=== PATIENT | female | born 1950 | race Caucasian/White ===

== ENCOUNTER 2021-03-25 14:53 | Emergency (ER) | payer MEDICARE, SELFPAY ==
--- NOTE | ~2021-03-25 | XR_ITS ---
XR knee RT 3V 03/25/2021 15:36 Indication: Generalized abdominal pain Procedure: 3 views right knee Comparison: . No prior studies for comparison. Findings: Mild osteoarthritis of the right knee. No fracture or traumatic malalignment. No significan t joint effusion. No focal soft tissue abnormality. No foreign bodies. Impression: 1: Mild osteoarthritis of the right knee. Reviewed, dictated and finalized at location B. Impression: 1: Mild osteoarthritis of the right knee.
[2021-03-25 15:18] VITALS: BP 192/90; PULSE 79; RESP 16; TEMP 36.6; O2SAT 100
--- NOTE | 2021-03-25 16:29 | ED.GENADULT ---
HPI - General Adult General Chief complaint: Extremity Injury, Lower <Juan Hooks PA-C - Last Filed: 03/25/21 16:31> Stated complaint: knee injury <ALICIA Gregory Last Filed: 03/25/21 16:31> Time Seen by Provider: 03/25/21 15:47 <Juan Hooks PA-C - Last Filed: 03/25/21 16:31> Source: patient and family <ALICIA Gregory Last Filed: 03/25/21 16:31> Mode of arrival: ambulatory <Juan Hooks PA-C - Last Filed: 03/25/21 16:31> Limitations: no limitations <ALICIA Gregory Last Filed: 03/25/21 16:31> History of Present Illness HPI narrative: Patient is a 70-year-old female who presents to emergency department for evaluation of right knee pain along the bilateral aspects patient notes aching pain worse with weightbearing and activity pain has been off and on she has been taking advised Aleve and Tylenol with relief and has had worsening pain based on activity patient denies pain elsewhere presents in no distress has not seen any specialist for this <Juan Hooks PA-C - Last Filed: 03/25/21 16:31> Related Data Allergies/adverse reactions: Allergies Allergy/AdvReac Type Severity Reaction Status Date / Time No Known Allergies Allergy Verified 03/25/21 15:45 <Juan Hooks PA-C - Last Filed: 03/25/21 16:31> Review of Systems Review of Systems: All systems reviewed & are unremarkable except as noted in HPI and below <Juan Hooks PA-C - Last Filed: 03/25/21 16:31> [facility] Social History Social History: Social History (Updated 03/25/21 @ 16:30 by Juan Hooks PA-C) Smoking status: Never smoker Gender identity (if verbalized by the patient): Female <ALICIA Gregory Last Filed: 03/25/21 16:31> Exam Narrative: Exam Narrative: GENERAL: Well-appearing, well-nourished, and in no acute distress. HEAD: Normocephalic, atraumatic. EYES: PERRLA and EOMI. ENT: Nares clear, no rhinorrhea or epistaxis. Mucous membranes moist. CHEST: Clear to auscultation. No respiratory distress. No wheezes rales or rhonchi HEART: Regular rate and rhythm. No murmur heard. Normal peripheral pulses. ABDOMEN: Soft, nontender, nondistended EXTREMITIES: Tenderness of the right knee joint no deformity noted SKIN: Warm, dry, no rash. NEURO: No focal deficits. Alert and oriented x3. Neurovascularly intact. Capillary refill less than 2 seconds PSYCH: Normal mood and affect. <Juan Hooks PA-C - Last Filed: 03/25/21 16:31> Course Course Emergency Course: Patient no distress will be given crutches already has a wrap will follow with orthopedic surgery and primary care for further evaluation <Juan Hooks PA-C - Last Filed: 03/25/21 16:31> Vital Signs Vital signs: Vital Signs Temperature 98 F 03/25/21 15:18 Pulse Rate 79 03/25/21 15:18 Respiratory Rate 16 03/25/21 15:18 Blood Pressure 192/90 H 03/25/21 15:18 Pulse Oximetry 100 03/25/21 15:18 Temperature 98 F 03/25/21 15:18 Pulse Rate 78 03/25/21 16:49 Respiratory Rate 18 03/25/21 16:49 Blood Pressure 159/83 H 03/25/21 16:49 Pulse Oximetry 100 03/25/21 16:49 <Juan Hooks PA-C - Last Filed: 03/25/21 16:31> Vital Signs Temperature 98 F 03/25/21 15:18 Pulse Rate 79 03/25/21 15:18 Respiratory Rate 16 03/25/21 15:18 Blood Pressure 192/90 H 03/25/21 15:18 Pulse Oximetry 100 03/25/21 15:18 Temperature 98 F 03/25/21 15:18 Pulse Rate 78 03/25/21 16:49 Respiratory Rate 18 03/25/21 16:49 Blood Pressure 159/83 H 03/25/21 16:49 Pulse Oximetry 100 03/25/21 16:49 <Nola Gustafson MD - Last Filed: 03/25/21 17:08> Medical Decision Making MDM Narrative Medical decision making narrative: Patients injury or pain is consistent with musculoskeletal etiology. No signs of neurological or vascular compromise on exam. Compartments and tisues are soft without signs of compartment syndro
[2021-03-25 16:49] VITALS: BP 159/83; PULSE 78; RESP 18; O2SAT 100
== END 2021-03-25 16:51 | disposition home or self-care (01) ==
PROVIDERS: Emergency Provider General Practice
DX: M23.91 Unspecified internal derangement of right knee (principal); M17.11 Unilateral primary osteoarthritis, right knee
CPT/HCPCS: 73562; 99283

== ENCOUNTER 2021-04-06 10:46 | Outpatient (RCR) | payer MEDICARE, SELFPAY ==
--- NOTE | 2021-04-06 11:50 | PTOPEVAL ---
Thank you for referring Mi Ortiz to [facility].? The patient is scheduled to be seen for therapy? ____x/week for ___ weeks. Please review, sign, date and return this plan of care LEELA. I agree with and certify that the following plan of care is medically necessary. Referring Physician Date Admitting Provider: Attending Provider: Khari Huff MD Referring Provider: *PT Outpatient Evaluation Start: 04/06/21 10:52 Freq: Status: Active Protocol: Document 04/06/21 10:52 ACR (Rec: 04/06/21 11:50 ACR [email or web address]) Therapy Assessment Status Assessment Status Assessment Status Evaluation Evaluation Information Problem Diagnosis R knee pain Onset 03/24/21 Subjective Information Patient states she went out Query Text:As Reported By Patient/ dancing and had some knee pain Family , then wore some heels and walked a bit which caused some knee pain. Then she stepped back and twisted the knee and heard a pop. She then went to the ER and they put on her on crutches. She then went to a specialist where she got an x- ray and showed arthritis. She occasionally feels the knee moves medial-lateral. She states the knee feels so much better since the initial injury. Patient states that she has difficulty with walking long distances and standing for a period of time due to pain and states the knee does not feel stable which scares her. Patient states her goal for therapy is to strengthen the knee. Prior Level of Function Activity Level (Last 3 Months) Occupation retired Hand Dominance Right Activity of Daily Living Ability Independent Indoor/Home Mobility Independent Community Mobility Independent Stairs Ability Independent Functional Cognition (Planning, Shopping Independent , Taking Medications) Cooking Yes Cleaning Yes Laundry Yes Shopping Yes Driving Yes Pain Assessment Timing of Pain Assessment Timing of Pain Assessment Assessment Pain Scale Pain Scale Used
--- NOTE | 2021-05-08 15:09 | PCPTNOTE ---
Patient is a 71 year old female that presents to therapy with complaints of R knee pain. The patient was called and she states that she is getting a second opinion and would like to be discharged at this time. Please refer to most recent treatment note for discharge status. Thank you, EVITA MelaraT
== END 2021-04-17 15:37 | disposition home or self-care (01) ==
LOC: CHSPT 10:46
PROVIDERS: Visit Provider Orthopaedic Surgery
DX: M25.561 Pain in right knee (principal); M13.861 Other specified arthritis, right knee
CPT/HCPCS: 97110; 97161; 97530

== ENCOUNTER 2023-06-02 07:43 | Outpatient (CLI) | payer MEDICARE, SELFPAY ==
--- NOTE | ~2023-06-02 | MM_ITS ---
EXAMINATION: MM screening jannet BI w jenny HISTORY: Screening mammogram TECHNIQUE: Craniocaudal and mediolateral oblique 3-D tomosynthesis images were obtained and synthetic 2-D images were generated. CAD analysis was submitted and interpreted. COMPARISON: 08/09/2012 BREAST PARENCHYMAL COMPOSITION: The breasts are heterogeneously dense, which may obscure small masses . FINDINGS: Scattered benign-appearing calcifications are present. No suspicious mass, calcification, o r architectural distortion are identified in either breast to suggest malignancy. There has been no s uspicious interval change. IMPRESSION: 1. No mammographic evidence of malignancy. 2. Recommend routine screening mammography in one year. BI-RADS Category 2: Benign finding(s). Reviewed, dictated and finalized at location A.
[2023-06-02 08:07] LABS: Basophils Absolute Auto 0.02 K/mm3 (0.00-0.10); Basophils Percent Auto 0.4 % (0.0-1.0); Eosinophils Absolute Auto 0.18 K/mm3 (0.02-0.50); Eosinophils Percent Auto 3.6 % (1.0-6.0); Hematocrit 38.6 % (35.0-42.0); Hemoglobin 12.7 g/dL (11.7-13.8); Immature Granulocyte Absolute 0.01 K/mm3 (0.00-0.00); Immature Granulocyte Percent A 0.2 % (0.0-0.0); Lymphocytes Absolute Auto 2.26 K/mm3 (1.10-4.50); Lymphocytes Percent Auto 45.7 % (18.0-42.0); Mean Corpuscular HGB Conc 32.9 g/dL (32.0-36.0); Mean Corpuscular Hemoglobin 30.3 pg (27.0-31.0); Mean Corpuscular Volume 92.1 fL (78.0-102.0); Mean Platelet Volume 9.4 fl (9.2-11.8); Monocytes Absolute Auto 0.43 K/mm3 (0.10-0.90); Monocytes Percent Auto 8.7 % (2.0-11.0); Neutrophils Percent Auto 41.4 % (50.0-70.0); Platelet Count Result 216 K/mm3 (150-420); Red Blood Count 4.19 M/mm3 (4.20-5.40); Red Cell Distribution Width 12.6 % (11.6-14.4); White Blood Count 4.9 K/mm3 (4.8-10.8)
[2023-06-02 09:00] LABS: Alanine Aminotransferase 21 U/L (14-59); Albumin Level 4.1 g/dL (3.4-5.0); Anion Gap 8 mmol/L (8-16); Aspartate Amino Transferase 16 U/L (15-37); Bilirubin,Total 0.6 mg/dL (0.00-1.00); Blood Urea Nitrogen 27 mg/dL (7-18); Calcium 8.9 mg/dL (8.5-10.1); Carbon Dioxide 30 mmol/L (21-32); Chloride 105 mmol/L (98-108); Cholesterol 292 mg/dL (0-200); Estimated Glomerular Filt Rate 57; Glucose 101 mg/dL (70-99); HDL Direct 55 mg/dL (40-60); Osmolality Calculated 301 mOsm/kg (285-295); Potassium 4.7 mmol/L (3.5-5.1); Sodium 143 mmol/L (136-145); Triglycerides 193 mg/dL (0-150)
[2023-06-02 09:01] LABS: Alkaline Phosphatase 116 U/L (46-116); LDL Cholesterol Calculated 198 mg/dL (<130)
[2023-06-02 09:03] LABS: Free T4 Free Thyroxine Reflex 0.76 ng/dL (0.76-1.46); Thyroid Stimulating Hormone Reflex 8.06 u/IU/mL (0.36-3.74)
[2023-06-07 03:31] LABS: Hepatitis C Virus Antibody Nonreactive
== END 2023-06-02 07:44 | disposition home or self-care (01) ==
LOC: CHSIMG 07:47
PROVIDERS: PCP Family Medicine Sports Medicine; Visit Provider Family Medicine Sports Medicine
DX: Z12.31 Encounter for screening mammogram for malignant neoplasm of breast (principal); E78.00 Pure hypercholesterolemia, unspecified
CPT/HCPCS: 36415; 77063; 77067; 80053; 80061; 84439; 84443; 85025; 86803

== ENCOUNTER 2024-07-27 07:43 | Outpatient (CLI) | payer MEDICARE, SELFPAY ==
[2024-07-27 08:04] LABS: Basophils Absolute Auto 0.03 K/mm3 (0.00-0.10); Basophils Percent Auto 0.5 % (0.0-1.0); Eosinophils Absolute Auto 0.17 K/mm3 (0.02-0.50); Hematocrit 39.9 % (35.0-42.0); Hemoglobin 13.1 g/dL (11.7-13.8); Immature Granulocyte Absolute 0.01 K/mm3 (0.00-0.00); Immature Granulocyte Percent A 0.2 % (0.0-0.0); Lymphocytes Absolute Auto 2.18 K/mm3 (1.10-4.50); Lymphocytes Percent Auto 38.1 % (18.0-42.0); Mean Corpuscular HGB Conc 32.8 g/dL (32-36); Mean Corpuscular Hemoglobin 30.5 pg (27.0-31.0); Monocytes Absolute Auto 0.41 K/mm3 (0.10-0.90); Monocytes Percent Auto 7.2 % (2.0-11.0); Neutrophils Absolute Auto 2.92 K/mm3 (1.70-7.20); Platelet Count Result 230 K/mm3 (150-420); Red Blood Count 4.29 M/mm3 (4.20-5.40); Red Cell Distribution Width 12.5 % (11.6-14.4); White Blood Count 5.7 K/mm3 (4.8-10.8)
[2024-07-27 08:42] LABS: Alanine Aminotransferase 16 U/L (14-59); Albumin Level 4.3 g/dL (3.4-5.0); Alkaline Phosphatase 103 U/L (46-116); Anion Gap 10 mmol/L (4-12); Aspartate Amino Transferase 14 U/L (15-37); Bilirubin,Total 0.6 mg/dL (0.00-1.00); Blood Urea Nitrogen 22 mg/dL (7-18); Calcium 9.1 mg/dL (8.5-10.1); Carbon Dioxide 28 mmol/L (21-32); Chloride 102 mmol/L (98-108); Cholesterol 169 mg/dL (0-200); Estimated Glomerular Filt Rate 55; Glucose 104 mg/dL (70-99); HDL Direct 56 mg/dL (40-60); LDL Cholesterol Calculated 83 mg/dL (<130); Osmolality Calculated 293 mOsm/kg (285-295); Potassium 4.7 mmol/L (3.5-5.1); Sodium 140 mmol/L (136-145); Thyroid Stimulating Hormone 4.87 uIU/mL (0.36-3.74); Triglycerides 148 mg/dL (0-150)
[2024-07-27 08:58] LABS: Free T4 Free Thyroxine 0.73 ng/dL (0.76-1.46)
[2024-07-31 11:14] LABS: Thyroid Peroxidase Antibodies 47 IU/mL (<9)
[2024-08-01 05:58] LABS: Hepatitis B Surface Antibody NON-REACTIVE (NON-REACTIVE)
[2024-08-01 09:54] LABS: Hepatitis B Core Ab Total NON-REACTIVE (NON-REACTIVE)
[2024-08-02 08:14] LABS: Hepatitis B Surface Antigen NON-REACTIVE (NON-REACTIVE)
== END 2024-07-27 07:44 | disposition home or self-care (01) ==
LOC: CHSLAB 07:50
PROVIDERS: PCP Family Medicine Sports Medicine; Visit Provider Family Medicine Sports Medicine
DX: R03.0 Elevated blood-pressure reading, without diagnosis of hypertension (principal); R94.4 Abnormal results of kidney function studies; E78.00 Pure hypercholesterolemia, unspecified; E03.8 Other specified hypothyroidism; Z11.59 Encounter for screening for other viral diseases
CPT/HCPCS: 36415; 80053; 80061; 84439; 84443; 85025; 86376; 86704; 86706; 87340